=== PATIENT | male | born 1955 | race Caucasian/White ===

== ENCOUNTER 2017-08-24 22:22 | Inpatient (IN) | payer OTHER, MEDICAID ==
[~2017-08-24] VITALS: Ht 170.2 cm; Wt 72.3 kg
[2017-08-24 23:23] LABS: BASOPHIL % 0.6 % (0-2); PLATELET COUNT 192 x10^3mcL (130-400)
[2017-08-24 23:46] LABS: BILIRUBIN TOTAL 0.2 mg/dL (0.20-1.00); CALCIUM 8.5 mg/dL (8.5-10.1); CARBON DIOXIDE 23.6 mmol/L (21-32); CREATININE SERUM 1.3 mg/dL (0.7-1.3); MAGNESIUM 2.2 mg/dL (1.8-2.4); PHOSPHOROUS 3.1 mg/dL (2.5-4.9); POTASSIUM SERUM 4.5 mmol/L (3.5-5.1); TOTAL PROTEIN, SERUM 7.5 g/dL (6.4-8.2)
[2017-08-24 23:57] LABS: ALBUMIN 3.2 g/dL (3.4-5.0)
[2017-08-25] MEDS ORDERED: GABAPENTIN600 M1 PO (00:15)
[2017-08-25] MEDS ORDERED: METFORMIN500 M1 PO (00:16)
[2017-08-25] MEDS ORDERED: CYMBALTA60 M1 PO (00:16)
[2017-08-25] MEDS ORDERED: GLIMEPIRIDE1 M1 PO (00:17)
[2017-08-25] MEDS ORDERED: HYDROCODONE BIT1 T46 PO (00:19)
[2017-08-25] MEDS ORDERED: ZETIA10 M1 PO (00:19)
[2017-08-25] MEDS ORDERED: TRAZODONE100 MG PO (00:19)
[2017-08-25] MEDS ORDERED: TYLENOL WITH CO1 TA2 PO (00:20)
[2017-08-25] MEDS ORDERED: PEPCID20 MG PO (00:20)
[2017-08-25] MEDS ORDERED: DIFLORASONE DIA PO (00:22)
[2017-08-25] MEDS ORDERED: LEVEMIR FLEX100 U/M1 SC (00:22)
[2017-08-25 01:28] VITALS: BP 156/85
[2017-08-25 03:40] LABS: CHOLESTEROL/HDL RATIO 4.5
[2017-08-25 03:47] LABS: T3 TOTAL 0.77 ng/mL
[2017-08-25 04:21] LABS: FREE T4 1.25 ng/dL (0.76-1.46); FREE THYROXINE INDEX 3.1 ug/dL (1.4-4.5); T4(THYROXINE) 8.3 ug/dL (4.7-13.3)
[2017-08-25 04:56] VITALS: BP 132/76
[2017-08-25 06:23] LABS: BASOPHIL % 0.4 % (0-2); PLATELET COUNT 171 x10^3mcL (130-400); RED CELL DISTRIBUTION WIDTH 14.5 % (11.5-14.5)
[2017-08-25 06:42] LABS: CALCIUM 7.8 mg/dL (8.5-10.1); CARBON DIOXIDE 24.2 mmol/L (21-32); CHLORIDE SERUM 102 mmol/L (98-107); CREATININE SERUM 0.8 mg/dL (0.7-1.3); GFR1 > 60 mL/min; GLUCOSE SERUM 245 mg/dL (74-106); POTASSIUM SERUM 4.4 mmol/L (3.5-5.1); SODIUM SERUM 133 mmol/L (136-145)
[2017-08-25 09:56] VITALS: BP 115/63
[2017-08-25 10:28] LABS: BASOPHIL % 0.9 % (0-2); PLATELET COUNT 166 x10^3mcL (130-400); RED CELL DISTRIBUTION WIDTH 14.3 % (11.5-14.5)
[2017-08-25 10:45] LABS: CALCIUM 7.7 mg/dL (8.5-10.1); CARBON DIOXIDE 26.4 mmol/L (21-32); CHLORIDE SERUM 106 mmol/L (98-107); CREATININE SERUM 0.7 mg/dL (0.7-1.3); GFR1 > 60 mL/min; GLUCOSE SERUM 75 mg/dL (74-106); LIPASE 855 IU/L (73-393); POTASSIUM SERUM 4.4 mmol/L (3.5-5.1); SODIUM SERUM 137 mmol/L (136-145)
[2017-08-25 11:37] LABS: microscopic required? NO
[2017-08-25 11:45] LABS: urine erythrocyte NEGATIVE (NEGATIVE)
[2017-08-25 11:57] LABS: AMPHETAMINE QUAL UR NONE DETECTED (NEG <=1000)
[2017-08-25 13:58] VITALS: BP 135/66
[2017-08-25 18:01] VITALS: BP 124/73
[2017-08-25 21:19] VITALS: BP 123/66
[2017-08-26 05:58] VITALS: BP 119/61
[2017-08-26 06:10] LABS: BASOPHIL % 0.4 % (0-2); PLATELET COUNT 170 x10^3mcL (130-400); RED CELL DISTRIBUTION WIDTH 14.3 % (11.5-14.5)
[2017-08-26 06:35] LABS: CARBON DIOXIDE 22.3 mmol/L (21-32); CHLORIDE SERUM 105 mmol/L (98-107); CREATININE SERUM 0.7 mg/dL (0.7-1.3); GFR1 > 60 mL/min; GLUCOSE SERUM 132 mg/dL (74-106); POTASSIUM SERUM 4.3 mmol/L (3.5-5.1); SODIUM SERUM 136 mmol/L (136-145)
[2017-08-26 09:38] VITALS: BP 153/75
[2017-08-26] MEDS ORDERED: METFORMIN HCL1000 MG PO (12:44)
[2017-08-26] MEDS ORDERED: HUMALOG100 U/ML SC (12:49)
[2017-08-26 13:24] VITALS: BP 153/75
[2017-08-26] MEDS ORDERED: HIB480 TOP (16:50)
[2017-08-26] MEDS ORDERED: BACOO OS (16:50)
[2017-08-26] MEDS ORDERED: BACTROBAN21 (16:51)
[2017-08-29 09:20] VITALS: Ht 170.2 cm; Wt 72.3 kg
== END 2017-08-26 14:05 | disposition home or self-care (01) | DRG 438 ==
LOC: ED 22:22 → DU 08-25 00:06 → MU 08-25 00:06 → DU 08-25 01:27 → MU 08-26 06:54
PROVIDERS: Emergency Medicine; Family Medicine
DX: K85.90 Acute pancreatitis without necrosis or infection, unspecified (principal); E11.00 Type 2 diabetes mellitus with hyperosmolarity without nonketotic hyperglycemic-hyperosmolar coma (NKHHC); N17.0 Acute kidney failure with tubular necrosis; E87.1 Hypo-osmolality and hyponatremia; E44.0 Moderate protein-calorie malnutrition; K21.9 Gastro-esophageal reflux disease without esophagitis; L40.9 Psoriasis, unspecified; Z68.24 Body mass index [BMI] 24.0-24.9, adult; Z87.891 Personal history of nicotine dependence; Z98.1 Arthrodesis status; Z79.4 Long term (current) use of insulin; Z22.322 Carrier or suspected carrier of Methicillin resistant Staphylococcus aureus
CPT/HCPCS: 82962; 83880; 84439; 97110-GP; 97116-GP; J1815; J3490; J7030; Q0092

== ENCOUNTER 2017-11-29 23:09 | Emergency (ER) | payer OTHER, MEDICAID ==
[~2017-11-29] VITALS: Ht 167.6 cm; Wt 71.7 kg
[~2017-11-29 23:09] MED LIST: BACOO OS; BACTROBAN21; CYMBALTA60 M1 PO; DIFLORASONE DIA PO; GABAPENTIN600 M1 PO; GLIMEPIRIDE1 M1 PO; HIB480 TOP; HUMALOG100 U/ML SC; HYDROCODONE BIT1 T46 PO; LEVEMIR FLEX100 U/M1 SC; METFORMIN HCL1000 MG PO; METFORMIN500 M1 PO; PEPCID20 MG PO; TRAZODONE100 MG PO; TYLENOL WITH CO1 TA2 PO; ZETIA10 M1 PO
[2017-11-29 23:15] VITALS: Ht 167.6 cm; Wt 71.7 kg
[2017-11-30 00:27] LABS: CALCIUM 7.3 mg/dL (8.5-10.1); CARBON DIOXIDE 24.5 mmol/L (21-32); CHLORIDE SERUM 97 mmol/L (98-107); CREATININE SERUM 1.1 mg/dL (0.7-1.3); GFR1 > 60 mL/min; POTASSIUM SERUM 4.1 mmol/L (3.5-5.1); SODIUM SERUM 129 mmol/L (136-145)
[2017-11-30 00:31] LABS: GLUCOSE SERUM 508 mg/dL (74-106)
[2017-11-30 01:27] VITALS: BP 135/76
== END 2017-11-30 01:27 | disposition home or self-care (01) ==
LOC: ED 23:09
PROVIDERS: Emergency Medicine
DX: E11.65 Type 2 diabetes mellitus with hyperglycemia (principal); R11.0 Nausea; Z88.5 Allergy status to narcotic agent; Z88.8 Allergy status to other drugs, medicaments and biological substances
CPT/HCPCS: J1815; J7030